=== PATIENT | female | born 2000 | race Caucasian/White ===

== ENCOUNTER 2024-12-23 08:53 | Emergency (ER) | payer OTHER ==
[~2024-12-23] VITALS: Ht 182.9 cm; Wt 72.6 kg
[2024-12-23 09:17] VITALS: PULSE 84; RESP 17; TEMP 98.2
[2024-12-23 09:46] LABS: BASOPHILS % 0.6 % (0.0-1.0); EOSINOPHILS % 0.7 % (0.0-6.0); LYMPHOCYTES % 27.5 % (18.0-39.1); MONOCYTES % 5.8 % (4.4-11.3); NEUTROPHILS % 65.1 % (38.7-80.0); RED CELL DISTRIBUTION WIDTH 13.2 % (11.7-14.4)
[2024-12-23 09:59] LABS: EST GLOMERULAR FILTRATION RATE 99.0 ML/MIN (>=60)
[2024-12-23] MEDS: SODIUM CHLORIDE 0.9% 1000ML 1,000 ML IV SCH (10:00)
[2024-12-23 11:06] VITALS: BP 128/78; PULSE 84; RESP 17; TEMP 98.2; O2SAT 99
== END 2024-12-23 11:00 | disposition home or self-care (01) ==
LOC: ER 09:08
DX: R20.0 Anesthesia of skin (principal); E86.0 Dehydration; R42 Dizziness and giddiness; F17.210 Nicotine dependence, cigarettes, uncomplicated
CPT/HCPCS: 36415; 80048; 84702; 85025; 99283; J7030